=== PATIENT | female | born 1945 | race Hispanic/Latino ===

== ENCOUNTER 2016-08-30 13:40 | Outpatient (CLI) | payer MEDICARE ==
--- NOTE | 2016-08-30 14:53 | Mammography Report ---
Left mammogram: Right mastectomy. 6 months of generalized left breast pain for approximately 6 months. Routine views demonstrates a completely fatty breast pattern. CAD used. Impression: No abnormal findings. Recommendation: Clinical followup. Any additional evaluation at this time should be based on your concern. Otherwise, annual mammogram followup. BI-RADS CATEGORY: 1 = Negative ACR BI-RADS MAMMOGRAPHIC CODES: 0 = Needs additional imaging evaluation; 1 = Negative; 2 = Benign; 3 = Probably benign; 4 = Suspicious; 5 = Malignant; 6 = Known biopsy-proven malignancy COMMENT: 1. Dense breast tissue, i.e., adenosis, fibrocystic changes, etc., may obscure an underlying neoplasm. 2. Approximately 10% of cancers are not detected with mammography. 3. A negative mammography report should not delay biopsy if a clinically suspicious mass is present.
== END 2016-08-30 13:41 | disposition home or self-care (01) ==
LOC: SPVWC 13:40
PROVIDERS: ATTEND Internal Medicine Hematology & Oncology
DX: N64.4 Mastodynia (principal); Z85.3 Personal history of malignant neoplasm of breast; Z90.11 Acquired absence of right breast and nipple
CPT/HCPCS: G0206-LT